=== PATIENT | female | born 1965 | race Caucasian/White ===

== ENCOUNTER 2020-09-08 16:04 | Emergency (ER) | payer MEDICAID ==
[~2020-09-08] VITALS: Ht 162.6 cm; Wt 65.8 kg
[2020-09-08] MEDS ORDERED: OXYCODONE HCL10 MG PO (17:49)
--- OUTSIDE RECORDS SUMMARY | 2020-09-08 18:26 | XMS ---
PreManage Notification: ED CESPEDES Security Screen Tacker Events No recent Security Events currently on file CRITERIA MET - [facility] - 3 Facilities in 90 Days - [facility] - 2 Visits in 30 Days CARE PROVIDERS There are no care providers on record at this time. Raheel has no Care Guidelines for this patient. EDileep VISIT COUNT (12 MO.) [facility] 1 [place] MAURICIO Banerjee TOTAL 4 NOTE: Visits indicate total known visits. ED/C VISIT TRACKING (12 MO.) 09/08/2020 16:08 MAURICIO [place] TYPE: Emergency COMPLAINT: - MEDICATION REFILL 09/07/2020 13:35 [facility] [place] TYPE: Emergency DIAGNOSES: - Knee Pain - Medication Reaction 07/19/2020 05:57 [facility] ([place] ([facility] TYPE: Emergency COMPLAINT: - UTI (urinary tract infection), uncomplicated (Primary Dx) DIAGNOSES: - Urinary tract infection, site not specified 06/06/2020 17:01 [facility] ([place]) ([facility] TYPE: Emergency COMPLAINT: - Atypical chest pain (Primary Dx); Left leg pain; Elevated blood pressure reading; Incomplete RBBB DIAGNOSES: - Other chest pain - Elevated blood-pressure reading, without diagnosis of hypertension - Unspecified right bundle-branch block - Pain in left leg INPATIENT VISIT TRACKING (12 MO.) No inpatient visits to display in this time frame [email or web address]
== END 2020-09-08 18:03 | disposition home or self-care (01) ==
LOC: ED 16:04
DX: G89.29 Other chronic pain (principal); Z76.0 Encounter for issue of repeat prescription; Z88.2 Allergy status to sulfonamides
CPT/HCPCS: 99281

== ENCOUNTER 2023-09-04 10:02 | Emergency (ER) | payer MEDICAID ==
[~2023-09-04] VITALS: Ht 162.6 cm; Wt 70.8 kg
[~2023-09-04 10:02] MED LIST: OXYCODONE HCL10 MG PO
--- OUTSIDE RECORDS SUMMARY | 2023-09-04 10:03 | XMS ---
PreManage Notification: ED CESPEDES Security Supervisor Packing Events No recent Security Events currently on file CRITERIA MET - PDMP - [facility] - 2 Visits in 30 Days - [facility] - 3 Facilities in 90 Days CARE PROVIDERS [facility], Clinic/Center: [facility]G PHONE: Unknown SURAJ KENDRICK [facility] Current PHONE: Unknown Raheel has no Care Guidelines for this patient. E.DDolly VISIT COUNT (12 MO.) 1 MAURICIO [facility] 1 [facility] 1 [facility] 1 [facility] TOTAL 4 NOTE: Visits indicate total known visits. ED/UCC VISIT TRACKING (12 MO.) 09/04/2023 10:02 MAURICIO Guy TYPE: Emergency COMPLAINT: - CHEST PAIN [facility] COMPLAINT: - Mental health check DIAGNOSES: - Manic episode, unspecified - Mental health check - Psychiatric Evaluation 08/02/2023 15:58 [facility] [place] TYPE: Emergency COMPLAINT: - R- kidney infection DIAGNOSES: - Acute cystitis without hematuria - Flank Pain - R- kidney infection 09/24/2022 14:05 [facility] Dwaine EDEN TYPE: Emergency COMPLAINT: - MEDS FOR BACK PAIN INPATIENT VISIT TRACKING (12 MO.) 08/15/2023 12[facility]19 [facility] TYPE: Behavioral Health DIAGNOSES: - Bipolar disorder, current episode mixed, severe, without psychotic features - Bipolar disorder, unspecified - Cannabis use, unspecified, uncomplicated - Chronic pain syndrome - Essential (primary) hypertension - Generalized anxiety disorder - Hyperlipidemia, unspecified - Opioid use, unspecified, uncomplicated - Suicidal ideations - Vitamin D deficiency, unspecified [email or web address]
[2023-09-04] MEDS ORDERED: AMLODIPINE BESYL5 MG PO (10:18)
[2023-09-04] MEDS ORDERED: VRAYLAR3 MG PO (10:18)
[2023-09-04] MEDS ORDERED: LORAZEPAM1 MG PO (10:19)
[2023-09-04] MEDS ORDERED: VITAMIN D350 MC3 PO (10:19)
[2023-09-04] MEDS ORDERED: NALOXONE HCL4 MG NS (10:19)
[2023-09-04 10:30] LABS: BASOPHILS 1.1 % (0-2); EOSINOPHILS 0.2 % (0-6); HEMATOCRIT 43.3 % (35.0-50.0); HEMOGLOBIN 14.4 g/dL (12.0-18.0); MCH 29.7 (27-36); MCHC 33.2 g/dl (30-36); MCV 89.4 fl (81-99); MONOCYTES 13.2 % (0-12); NEUTROPHILS 59.5 % (39-80); PLATELET COUNT 277 K/uL (140-440); RBC 4.85 M/ul (4.3-5.7); RDW 13.2 (10.5-15.0)
[2023-09-04] MEDS ORDERED: OXYCODONE HCL 5 MG TAB PO ONE (10:30)
[2023-09-04] MEDS ORDERED: SODIUM CHLORIDE 0.9% 1,000 ML IV ONE (10:30)
[2023-09-04 10:50] LABS: ALBUMIN 3.7 g/dL (3.4-5.0); ALBUMIN/GLOBULIN RATIO 0.93 (1.1-2.4); ANION GAP 12.3 (7-21); BILIRUBIN, TOTAL 0.3 ng/dL (0.2-1.0); BUN/CREATININE RATIO 15.21 (6.0-28.6); CREATININE, SERUM 0.92 mg/dL (0.55-1.02); POTASSIUM 3.3 mmol/L (3.5-5.1); PROTEIN, TOTAL 7.7 g/dL (6.4-8.2); TSH, 3RD GENERATION 0.51 uIU/mL (0.358-3.740)
[2023-09-04 11:59] VITALS: BP 137/103
--- NOTE | 2023-09-06 07:41 | EKG ---
[facility] [address] [place], [place] [address] Signed Sinus tachycardia Left anterior fascicular block Cannot rule out Anterior infarct , age undetermined Abnormal ECG No previous ECGs available Confirmed by Diana Yi MD ([id number]) on 09/06/2023 7:40:52 AM Electronically Signed By: DIANA YI 09/06/23 0741 PATIENT NAME: ED CESPEDES Electrocardiogram DATE OF : 67 PHYSICIAN: DIANA YI REPORT #: [id number] REPORT IS CONFIDENTIAL AND NOT TO BE RELEASED WITHOUT AUTHORIZATION
== END 2023-09-04 12:02 | disposition home or self-care (01) ==
LOC: ED 10:02
PROVIDERS: Emergency Medicine
DX: R00.0 Tachycardia, unspecified (principal); I10 Essential (primary) hypertension; Z79.899 Other long term (current) drug therapy; Z88.2 Allergy status to sulfonamides
CPT/HCPCS: 36415; 71045; 80053; 83735; 84443; 84484; 85025; 85379; 93005; 93010; 99285-25; A9270; J7030

== ENCOUNTER 2023-09-07 04:10 | Emergency (ER) | payer MEDICAID ==
[~2023-09-07] VITALS: Ht 162.6 cm; Wt 76.4 kg
--- OUTSIDE RECORDS SUMMARY | ~2023-09-07 | XMS | Continuity of Care Document ---
Demographics + + + | Address | [address] | | | [place] [address] | + + + | Preferred Language | Unknown | + + + | Marital Status | Unknown | + + + | Restorationist Affiliation | Unknown | + + + | Race | White | + + + | Ethnic Group | Not or | + + + Author + + + | Author | [facility] | + + + | Organization | [facility] | + + + | Address | [address] | | | [place] [address] | + + + | Phone | | + + + Care Team Providers + + + + | Care Business Analytics Intern Name | Role | Phone | + + + + Unavailable | Unavailable | + + + + Allergies No information. Encounters No information. Functional Status No information. Immunizations No information. Medications No information. Problems No information. Procedures No information. Results/Labs +--------+--------+ +---------+--------+---------+ | test | date | facility | value | unit | notes | +--------+--------+ +---------+--------+---------+ + + | Result panel 1 | + + + + + +---------+ + + | | 2023-08-16 | [facility] | 1.690 | uiu/ml | Performed | | TSH.SER/PLAS | 06:00 | [facility] | | | at: 01 - | | .QN (REF) | | [facility] | | | [place] | | | | | | | [address] | | | | | | | [address] | | | | | | | [address], | | | | | | | [place], [place] | | | | | | | [phone] | | | | | | | Lab | | | | | | | Director: | | | | | | | Gamal | | | | | | | Vic MCCORD, | | | | | | | Phone: | | | | | | | [phone] | + + + +---------+ + + | LDL | 2023-08-16 | [facility] | 113 | mg/dl | (missing) | | CHOLESTEROL. | 06:00 | [facility] | | | | | SER/PLAS.QN. | | [facility] CALCULATED | | Hospital | | | | | (REF) | | | | | | + + + +---------+ + + | ESTIMATED | 2023-08-16 | [facility] | 114 | mg/dl | (missing) | | AVERAGE | 06:00 | [facility] | | | | | GLUCOSE.BLOO | | [facility] | | | | D.QN (REF) | | Hospital | | | | + + + +---------+ + + | LDL | 2023-08-16 | [facility] | 15 | mg/dl | (missing) | | CHOLESTEROL. | 06:00 | [facility] | | | | | SER/PLAS.QN. | | [facility] | | | | | CALCULATED | | Hospital | | | | | (REF) | | | | | | + + + +---------+ + + | LDL | 2023-08-16 | [facility] | 214 | mg/dl | Performed | | CHOLESTEROL. | 06:00 | [facility] | | | at: 01 - | | SER/PLAS.QN. | | [facility] | | | [facility] | | CALCULATED | | Hospital | | | [place] | | (REF) | | | | | [address] | | | | | | | [address] | | | | | | | [address], | | | | | | | [place], [place] | | | | | | | [phone] | | | | | | | Lab | | | | | | | Director: | | | | | | | Gamal | | | | | | | Vic MCCORD, | | | | | | | Phone: | | | | | | | [phone] | + + + +---------+ + + | 25-HYDROXY | 2023-08-16 | [facility] | 24.6 | ng/ml | Performed | | D3.SER/PLAS. | 06:00 | [place] | | | at: 01 - | | QN (REF) | | [facility] | | [facility] | | | | Hospital | | | [place] | | | | | | | [address] | | | | | | | [address] | | | | | | | [address], | | | | | | | [place], [place] | | | | | | | [phone] | | | | | | | Lab | | | | | | | Director: | | | | | | | Gamal | | | | | | | Vic MCCORD, | | | | | | | Phone: | | | | | | | [phone] | | | | | | | Vitamin D | | | | | | | deficiency | | | | | | | has been | | | | | | | defined by | | | | | | | the | | | | | | | [place] of | | | | | | | Medicine | | | | | | | and an | | | | | | | Endocrine | | | | | | | Society | | | | | | | practice | | | | | | | guideline as | | | | | | | a level of | | | | | | | serum 25-OH | | | | | | | vitamin D | | | | | | | less than 20 | | | | | | | ng/mL | | | | | | | (1,2). The | | | | | | | Endocrine | | | | | | | Society went | | | | | | | on to | | | | | | | further | | | | | | | define | | | | | | | vitamin D | | | | | | | insufficienc | | | | | | | y as a level | | | | | | | between 21 | | | | | | | and 29 ng/mL | | | | | | | (2). 1. IOM | | | | | | | ([place] | | | | | | | of | | | | | | | Medicine). | | | | | | | 2009. | | | | | | | Dietary | | | | | | | reference | | | | | | | intakes for | | | | | | | calcium and | | | | | | | D. | | | | | | | Sams | | | | | | | [place]: The | | | | | | | National | | | | | | | Academies | | | | | | | Press. 2. | | | | | | | Holick MF, | | | | | | | Cornelius [place], | | | | | | | Wendy-Sebas | | | | | | | rari DUNLAP, et | | | | | | | al. | | | | | | | Evaluation, | | | | | | | treatment, | | | | | | | and | | | | | | | prevention | | | | | | | of vitamin D | | | | | | | deficiency: | | | | | | | an | | | | | | | Endocrine | | | | | | | Society | | | | | | | clinical | | | | | | | practice | | | | | | | guideline. | | | | | | | JCEM. 2010 | | | | | | | [place]; | | | | | | | [phone] | | | | | | | 0. | + + + +---------+ + + | ESTIMATED | 2023-08-16 | [facility] | 5.6 | % | | | AVERAGE | 06:00 | [facility] | | | | | DEE.MONSE | | [facility] | | | | | [facility] (REF) | | Hospital | | | | + + + +---------+ + + Social History +--------+ + + | date | description | facility | +--------+ + + Vital Signs No information."
[~2023-09-07 04:10] MED LIST changes: +AMLODIPINE BESYL5 MG PO; +LORAZEPAM1 MG PO; +NALOXONE HCL4 MG NS; +VITAMIN D350 MC3 PO; +VRAYLAR3 MG PO
--- OUTSIDE RECORDS SUMMARY | 2023-09-07 04:12 | XMS ---
PreManage Notification: ED CESPEDES Security Echo Vascular Tech Events No recent Security Events currently on file CRITERIA MET - PDMP - [facility] - 2 Visits in [address] [facility] - 3 Facilities in 90 Days CARE PROVIDERS [facility], Clinic/Center: Dental Current PHONE: Unknown SURAJ KENDRICK [facility] Current PHONE: Unknown Raheel has no Care Guidelines for this patient. E.DDolly VISIT COUNT (12 MO.) 2 MAURICIO [facility] [address] 1 [facility] TOTAL 5 NOTE: Visits indicate total known visits. ED/UCC VISIT TRACKING (12 MO.) 09/07/2023 04:11 [facility] [place] TYPE: Emergency COMPLAINT: - BODY ACHES 09/04/2023 10:02 [facility] [place] TYPE: Emergency COMPLAINT: - CHEST PAIN DIAGNOSES: - Allergy status to sulfonamides - Essential (primary) hypertension - Other chest pain - Other fdc (current) drug therapy - Tachycardia, unspecified 08/14/2023 11:57 [facility] TYPE: Emergency COMPLAINT: - Mental health check DIAGNOSES: - Manic episode, unspecified - Mental health check - Psychiatric Evaluation 08/02/2023 15:58 [facility] TAMY Dolly TYPE: Emergency COMPLAINT: - R- kidney infection DIAGNOSES: - Acute cystitis without hematuria - Flank Pain - R- kidney infection 09/24/2022 14:05 [facility] Yamileth EDEN TYPE: Emergency COMPLAINT: - MEDS FOR BACK PAIN INPATIENT VISIT TRACKING (12 MO.) 08/15/2023 12:19 [facility] [place] TYPE: Behavioral Health DIAGNOSES: - Bipolar disorder, current episode mixed, severe, without psychotic features - Bipolar disorder, unspecified - Cannabis use, unspecified, uncomplicated - Chronic pain syndrome - Essential (primary) hypertension - Generalized anxiety disorder - Hyperlipidemia, unspecified - Opioid use, unspecified, uncomplicated - Suicidal ideations - Vitamin D deficiency, unspecified [email or web address]
[2023-09-07 04:37] LABS: BILIRUBIN, URINE NEGATIVE (negative); BLOOD/HGB, URINE SMALL (Negative); KETONE, URINE NEGATIVE (Negative); LEUK ESTERASE, URINE NEGATIVE (negative); NITRITE, URINE NEGATIVE (negative)
[2023-09-07 04:47] LABS: BACTERIA, URINE RARE /hpf (negative); CASTS, URINE NONE SEEN \\lpf; COLLECTION TYPE, URINE CLEAN CATCH; CRYSTALS, URINE NONE SEEN (0-1+); EPITHELIAL CELLS, URINE SQUAMOUS 1+ /lpf (0-1+); REFLEX CULTURE, URINE No (No)
[2023-09-07 04:51] LABS: AMPHETAMINES, URINE NEGATIVE (NEGATIVE); BARBITURATES, URINE NEGATIVE (NEGATIVE); BENZODIAZEPINE, URINE NEGATIVE (NEGATIVE); BUPRENORPHINE, URINE NEGATIVE (NEGATIVE); CANNABINOID, URINE NEGATIVE (NEGATIVE); COCAINE, URINE NEGATIVE (NEGATIVE); ECSTASY, URINE NEGATIVE (NEGATIVE); FENTANYL, URINE NEGATIVE (NEGATIVE); METHADONE, URINE NEGATIVE (NEGATIVE); OPIATES, URINE NEGATIVE (NEGATIVE); OXYCODONE, URINE NEGATIVE (NEGATIVE); PHENCYCLIDINE, URINE NEGATIVE (NEGATIVE)
[2023-09-07 05:14] LABS: INFLUENZA B NAA NEGATIVE (NEGATIVE); RESPIRATORY SYNCYTIAL VIR NAA NEGATIVE (NEGATIVE)
[2023-09-07] MEDS ORDERED: OXYCODONE HCL5 MG PO (05:30)
[2023-09-07 05:55] VITALS: BP 164/94
--- NOTE | 2023-09-07 13:40 | EKG ---
[facility] [place] [facility] [address] [place] [address] Signed Sinus tachycardia Incomplete right bundle branch block Left anterior fascicular block Abnormal ECG When compared with ECG of 04-SEP-2023 10:02, No significant change was found Confirmed by Bryce Yi MD ([id number]) on 09/07/2023 1:40:19 PM Electronically Signed By: BRYCE YI 09/07/23 1340 PATIENT NAME: COYED Electrocardiogram DATE OF : 67 PHYSICIAN: BRYCE YI REPORT #: [id number] REPORT IS CONFIDENTIAL AND NOT TO BE RELEASED WITHOUT AUTHORIZATION
== END 2023-09-07 05:56 | disposition home or self-care (01) ==
LOC: ED 04:10
PROVIDERS: Internal Medicine
DX: U07.1 COVID-19 (principal); G89.29 Other chronic pain; I10 Essential (primary) hypertension; F31.9 Bipolar disorder, unspecified; Z88.2 Allergy status to sulfonamides; Z79.899 Other long term (current) drug therapy
CPT/HCPCS: 80053; 80307; 81001; 82553; 84484; 85025; 87502; 93005; 93010; 99284; U0002